=== PATIENT | male | born 1960 | race Caucasian/White ===

== ENCOUNTER 2016-11-07 05:36 | Emergency (ER) | payer BC ==
[~2016-11-07] VITALS: Ht 185.4 cm; Wt 86.7 kg
[~2016-11-07 05:36] MED LIST: AMLODIPINE BESYL5 MG PO; ASPIR-LOW81 MG PO; FIORICET,ESG1 TABLET PO; FLEXERIL10 MG PO; IBUPROFEN800 MG PO; MORPHINE SULFAT15 M1 PO; MOTRIN800 MG PO; NAPROSYN500 MG PO; PERCOCET 10/1 TABLET PO; TESSALON PERLE100 MG PO; TRAMADOL HCL50 MG PO; VALIUM5 MG PO; VICODIN HP 10-1 EACH PO; vicodin PO
[2016-11-07] MEDS ORDERED: NAPROXEN500 MG PO (06:45)
[2016-11-07 07:06] VITALS: BP 158/88
== END 2016-11-07 07:07 | disposition home or self-care (01) ==
LOC: EME 05:36
DX: M25.562 Pain in left knee (principal); M25.462 Effusion, left knee; G89.29 Other chronic pain
CPT/HCPCS: 73564; 99281; 99283; J1885

== ENCOUNTER 2017-09-15 19:58 | Emergency (ER) | payer BC ==
[~2017-09-15] VITALS: Ht 185.4 cm; Wt 96.3 kg
[~2017-09-15 19:58] MED LIST changes: +NAPROXEN500 MG PO
[2017-09-15 20:52] LABS: HEMATOCRIT 41.4 % (38.0-50.0); MCH 31.4 PG (29.0-34.0); MCHC 36.2 G/DL (30.0-36.0); MCV 86.6 FL (86-99); PLATELET COUNT 288 K/uL (156-360); RBC DIS.WIDTH-CV 11.8 % (11.8-14.6); RBC DIS.WIDTH-SD 37.8 % (39-53); RED BLOOD COUNT 4.78 M/uL (4.00-5.50); WHITE BLOOD COUNT 7.5 K/uL (4.1-10.2)
[2017-09-15 21:02] LABS: CHLORIDE 108 mEq/L (99-109); POTASSIUM 3.5 mEq/L (3.7-5.4); SODIUM 138 mEq/L (136-147)
[2017-09-15 21:04] LABS: GLUCOSE 110 mg/dL (70-99)
[2017-09-15 21:08] LABS: CREATININE 0.9 mg/dL (0.6-1.3); GFR ESTIMATE (CALCULATED) > 59 mL/min/ (58.99-99999); UREA NITROGEN (BUN) 15 mg/dL (9-23)
[2017-09-15 21:13] LABS: TROP-I INTERPRETATION NEGATIVE; TROPONIN-I 0.01 ng/mL (0.0-0.30)
[2017-09-15 23:50] LABS: TROP-I INTERPRETATION NEGATIVE; TROPONIN-I < 0.01 ng/mL (0.0-0.30)
[2017-09-16] MEDS ORDERED: ADULT LOW DOSE81 M1 PO (00:08)
[2017-09-16] MEDS ORDERED: NORVASC5 MG PO (00:08)
[2017-09-16 00:28] VITALS: BP 122/91
== END 2017-09-16 00:29 | disposition home or self-care (01) ==
LOC: EME 19:58
PROVIDERS: Physician Assistant
DX: R07.89 Other chest pain (principal); E87.6 Hypokalemia; I10 Essential (primary) hypertension; M54.9 Dorsalgia, unspecified; G43.909 Migraine, unspecified, not intractable, without status migrainosus; Z87.891 Personal history of nicotine dependence; Z88.0 Allergy status to penicillin
CPT/HCPCS: 71046; 80048; 84484; 85027; 93005; 99281; 99285